=== PATIENT | male | born 1960 | race Caucasian/White ===

== ENCOUNTER 2017-02-20 12:19 | Emergency (ER) | payer SELFPAY ==
[2017-02-20] MEDS ORDERED: RIVA10TA PO (12:26)
[2017-02-20 15:00] VITALS: BP 100/60
== END 2017-02-20 15:15 | disposition home or self-care (01) ==
LOC: ED 15:09
DX: M25.561 Pain in right knee (principal)
CPT/HCPCS: 29505; 99284

== ENCOUNTER 2019-09-30 23:53 | Emergency (ER) | payer SELFPAY ==
[~2019-09-30] VITALS: Ht 182.9 cm; Wt 86.0 kg
[~2019-09-30 23:53] MED LIST: RIVA10TA2 PO
--- NOTE | 2019-10-01 00:06 | NUR ---
BIB [facility] FROM HOME. PT C/O FOOT PAIN ON BOTTOM OF RIGHT GREAT TOE. +ETOH. PT UNABLE TO FOR SUICIDE ASSESSMENT D/T +ETOH. PT CONNECTED TO MONITORING. PROVIDER AT BEDSIDE. AWAITING ORDERS AT THIS TIME.
--- NOTE | 2019-10-01 00:14 | NUR ---
REPORT GIVEN TO CAROLYN KIRBY
[2019-10-01 01:03] VITALS: BP 122/71
--- NOTE | 2019-10-01 01:37 | NUR ---
pt sitting up in bed. pt denies current needs.
--- NOTE | 2019-10-01 02:35 | NUR ---
Pt ambulated in hallway without difficulty, pt requesting to be sent home. Walked patient back to room, ambulated with a steady gate.
== END 2019-10-01 02:51 | disposition home or self-care (01) ==
LOC: ED 10-01 02:43
DX: F10.220 Alcohol dependence with intoxication, uncomplicated (principal); B07.0 Plantar wart; Y90.9 Presence of alcohol in blood, level not specified
CPT/HCPCS: 99283

== ENCOUNTER 2019-12-01 00:35 | Emergency (ER) | payer SELFPAY ==
[~2019-12-01] VITALS: Ht 182.9 cm; Wt 85.0 kg
--- NOTE | 2019-12-01 00:52 | NUR ---
Patient into room, dressed with break RN. Received report and assumed patient care. Patient denies any needs, claims was told he didn't have a heart beat by a neighbor who called the paramedics. Patient in room, changed into clothes, vital signs are stable (see triage flowsheet.) Patient speech pattern is clear, thoughts are disorganized, flight of thoughts from one thought to the next. Patient denies needs and during provider assessment patient declines medical symptoms. Patient states prefers to go home. RN encouraged patient to have EKG done prior to discharge.
[2019-12-01 01:28] LABS: BASOPHILS # (AUTO) 0.06 x10^3/uL (0-0.1); BASOPHILS % (AUTO) 1 % (0-1); EOSINOPHILS # (AUTO) 0.14 x10^3/uL (0-0.4); EOSINOPHILS % (AUTO) 2 % (1-7); LYMPHOCYTES # (AUTO) 3.42 x10^3/uL (1-3.4); LYMPHOCYTES % (AUTO) 44 % (22-44); MD NO; MEAN CORPUSCULAR HEMOGLOBIN 32.9 pg (27.5-34.5); MEAN CORPUSCULAR HGB CONC 34.6 g/dL (33.2-36.2); MEAN CORPUSCULAR VOLUME 95.1 fL (81-97); MEAN PLATELET VOLUME 7.7 fL (7.4-10.4); MONOCYTES # (AUTO) 0.47 x10^3/uL (0.2-0.8); MONOCYTES % (AUTO) 6 % (2-9); NEUTROPHILS # (AUTO) 3.66 x10^3/uL (1.8-6.8); NEUTROPHILS % (AUTO) 47 % (42-75); PLATELET COUNT 162 x10^3/uL (130-400); RED BLOOD COUNT 5.16 x10^6/uL (4.38-5.82); RED CELL DISTRIBUTION WIDTH 14.4 % (9.4-14.8)
[2019-12-01 01:40] LABS: ALBUMIN 3.3 g/dL (3.4-5.0); ANION GAP 10 mmol/L (5-15); CALCIUM 8.1 mg/dL (8.5-10.1); CHLORIDE 108 mmol/L (98-107)
[2019-12-01 01:45] LABS: CREATININE 1.03 mg/dL (0.7-1.3); TROPONIN I < 0.015 ng/mL (0.000-0.045)
[2019-12-01 02:08] VITALS: BP 110/70
--- NOTE | 2019-12-01 02:08 | NUR ---
Rn to room, patient resting comfortably. Has removed blood pressure cuff and pulsatile oxygen sensor despite education on need for monitoring. Reattached, vital signs stable (see vital signs flowsheet) awaiting reassessment by provider.
== END 2019-12-01 02:37 | disposition home or self-care (01) ==
LOC: ED 01:59
DX: F10.120 Alcohol abuse with intoxication, uncomplicated (principal); F17.200 Nicotine dependence, unspecified, uncomplicated; R00.0 Tachycardia, unspecified; Y90.0 Blood alcohol level of less than 20 mg/100 ml
CPT/HCPCS: 36415; 71045; 80048; 80307; 82040; 84484; 85025; 93005; 99285

== ENCOUNTER 2020-07-13 17:15 | Inpatient (IN) | payer OTHER ==
[~2020-07-13] VITALS: Ht 182.9 cm; Wt 79.5 kg
--- NOTE | 2020-07-13 17:32 | NUR ---
PT BIB EMS FOR WEAKNESS, COUGH 12 DAYS, CONFUSION. PT FOUND TO BE HYPOXIC 86% RA AND CONFUSED TO SITUATION PER EMS. RR 40, MOTTLED SKIN. BS 159, GIVEN 250 ML NS, PT ANSWERING QUESTIONS A&OX4, UAT TESTER IN PLACE, MOTTLED SKIN, CLAMMY, RR 40. NOW 94% ON 5 L NC,
--- NOTE | 2020-07-13 17:34 | NUR ---
ERMD UPDATED ON PT APPEREANCE, RESP EFFORT, MOTTELED SKIN. EKG PAGED
--- NOTE | 2020-07-13 17:53 | NUR ---
MD EXAMINED PT, EKG COMPLETE, IVF
[2020-07-13] MEDS ORDERED: SODIUM CHLORIDE 0.9% 1,000ML IVBOLUS ONE (18:00)
[2020-07-13] MEDS ORDERED: SODIUM CHLORIDE FLUSH 10ML SYR IVF ONE (18:00)
[2020-07-13] MEDS ORDERED: CEFTRIAXONE PMX 1GM/50ML 50 ML IV ONE (18:30)
[2020-07-13] MEDS ORDERED: AZITHROMYCIN 500 MG in SODIUM CHLORIDE 0.9% 250 ML IV ONE (18:30)
[2020-07-13 18:32] LABS: ALBUMIN 2.4 g/dL (3.4-5.0); ANION GAP 12 mmol/L (5-15); CALCIUM 7.8 mg/dL (8.5-10.1); CHLORIDE 112 mmol/L (98-107); CREATININE 1.42 mg/dL (0.7-1.3); MEAN CORPUSCULAR HEMOGLOBIN 32.9 pg (27.5-34.5); MEAN CORPUSCULAR HGB CONC 35.1 g/dL (33.2-36.2); MEAN PLATELET VOLUME 11.1 fL (7.4-10.4); PLATELET COUNT 109 x10^3/uL (130-400); RED BLOOD COUNT 5.26 x10^6/uL (4.38-5.82); RED CELL DISTRIBUTION WIDTH 13.2 % (9.4-14.8)
[2020-07-13 18:36] LABS: TROPONIN I < 0.015 ng/mL (0.000-0.045)
[2020-07-13] MEDS ORDERED: CEFTRIAXONE PMX 1GM/50ML 50 ML ONE (18:36)
--- NOTE | 2020-07-13 18:46 | NUR ---
BLOOD CULTURES SENT, PRIOR TO ABX ADMIN
--- NOTE | 2020-07-13 18:56 | NUR ---
REPORT TO RUPINDER
[2020-07-13 18:59] LABS: MD YES
[2020-07-13 19:06] LABS: <PLATELET ESTIMATE> DECREASED; <RBC MORPHOLOGY> NORMAL; BAND#(MANUAL) 0.38 x10^3/uL; BANDS%(MANUAL) 4 % (0-7); EOS#(MANUAL) 0.09 x10^3/uL (0.0-0.4); EOS% (MANUAL) 1 % (1-7); LYMPH#(MANUAL) 1.03 x10^3/uL (1-3.4); LYMPHS% (MANUAL) 11 % (22-44); METAMYELOCYTES# (MANUAL) 0.09 x10^3/uL (0-0); METAMYELOCYTES% (MANUAL) 1 % (0-1); MONOS#(MANUAL) 0.19 x10^3/uL (0.3-2.7); MONOS% (MANUAL) 2 % (2-9); SEG#(MANUAL) 7.61 x10^3/uL (1.8-6.8); SEGS% (MANUAL) 81 % (42-75)
[2020-07-13 19:07] LABS: LARGE PLATELETS 1+
[2020-07-13] MEDS ORDERED: IBUPROFEN 600 MG TABLET PO PRN (20:00)
[2020-07-13] MEDS ORDERED: SODIUM CHLORIDE 0.9% 1,000 ML IV SCH (20:00)
[2020-07-13] MEDS ORDERED: DOCUSATE 100 MG CAPSULE PO PRN (20:00)
[2020-07-13] MEDS ORDERED: LABETALOL 5MG/ML, 20ML IVPush PRN (20:00)
[2020-07-13] MEDS ORDERED: GUAIFENESIN/DM 200-20MG, 10ML UDC PO PRN (20:00)
[2020-07-13] MEDS ORDERED: ACETAMINOPHEN 325 MG TABLET PO PRN (20:00)
[2020-07-13 20:15] LABS: D-DIMER (DIC) 3.61 ug/mlFEU (0.00-0.52); PROTIME 12.6 Seconds (9.6-11.5)
[2020-07-13] MEDS ORDERED: HEPARIN 5,000 UNITS/ML, 1ML ONE (20:26)
[2020-07-13] MEDS ORDERED: DEXAMETHASONE 4 MG/ML, 1ML ONE (20:26)
[2020-07-13 20:34] LABS: C-REACTIVE PROTEIN, QUANT 18.4 mg/dL (0.02-0.49)
[2020-07-13] MEDS: DEXAMETHASONE 4 MG/ML, 1ML IVPush SCH (20:39)
[2020-07-13] MEDS: HEPARIN 5,000 UNITS/ML, 1ML SQ SCH (20:40)
[2020-07-13] MEDS ORDERED: FAMOTIDINE 20 MG/2 ML IVPush SCH (21:00)
--- NOTE | 2020-07-13 23:10 | NUR ---
PT RESTING IN BED, PT URINAL HALF FULL AT BED SIDE WAS DISCARDED, PT DENIED ANY CURRENT WANTS OR NEEDS AT THIS TIME.
[2020-07-14] MEDS ORDERED: OMNIPAQUE 350 MG/ML, 100ML BOTTLE ONE
[2020-07-14 01:55] VITALS: BP 109/74
[2020-07-14 02:04] VITALS: BP 109/73
[2020-07-14 04:00] VITALS: BP 113/77
[2020-07-14] MEDS: HEPARIN 5,000 UNITS/ML, 1ML SQ SCH (04:37)
[2020-07-14 04:54] LABS: BASOPHILS % (AUTO) 0 % (0-1); EOSINOPHILS % (AUTO) 0 % (1-7); LYMPHOCYTES % (AUTO) 6 % (22-44); MEAN CORPUSCULAR HGB CONC 34.3 g/dL (33.2-36.2); MEAN PLATELET VOLUME 9.9 fL (7.4-10.4); MONOCYTES % (AUTO) 6 % (2-9); NEUTROPHILS % (AUTO) 88 % (42-75); PLATELET COUNT 119 x10^3/uL (130-400); RED BLOOD COUNT 4.66 x10^6/uL (4.38-5.82)
[2020-07-14 05:06] LABS: CHLORIDE 114 mmol/L (98-107)
[2020-07-14 05:13] LABS: ANION GAP 5 mmol/L (5-15); CALCIUM 7.8 mg/dL (8.5-10.1); CREATININE 1.34 mg/dL (0.7-1.3)
[2020-07-14 05:50] LABS: MD SCAN
[2020-07-14] MEDS: ENOXAPARIN 40 MG/0.4 ML SQ SCH (07:46)
[2020-07-14] MEDS: ASCORBIC ACID 500 MG TABLET PO SCH ×2 (08:00→17:00)
[2020-07-14] MEDS: ZINC SULFATE 220 MG CAPSULE PO SCH (09:00)
[2020-07-14] MEDS: NICOTINE 14MG/24 HR PATCH.TD24 TD SCH (09:00)
[2020-07-14] MEDS: CHOLECALCIFEROL 5,000u TAB PO SCH (09:00)
[2020-07-14] MEDS: DEXAMETHASONE 4 MG/ML, 1ML IVPush SCH (09:08)
[2020-07-14 10:15] LABS: RAPID INFLUENZA A Negative (Negative); RAPID INFLUENZA B Negative (Negative)
[2020-07-14] MEDS: SODIUM CHLORIDE 0.9% 1,000 ML IV SCH (14:00)
[2020-07-14] MEDS: CEFTRIAXONE PMX 1GM/50ML 50 ML IV SCH (18:24)
[2020-07-14] MEDS: AZITHROMYCIN 500 MG in SODIUM CHLORIDE 0.9% 250 ML IV SCH (18:46)
[2020-07-15] MEDS: SODIUM CHLORIDE 0.9% 1,000 ML IV SCH ×2 (02:23→16:13)
[2020-07-15 05:00] VITALS: BP 128/82
[2020-07-15 09:18] VITALS: BP 130/88
[2020-07-15] MEDS: DEXAMETHASONE 4 MG/ML, 1ML IVPush SCH (09:24)
[2020-07-15] MEDS: ASCORBIC ACID 500 MG TABLET PO SCH ×2 (09:25→16:13)
[2020-07-15] MEDS: NICOTINE 14MG/24 HR PATCH.TD24 TD SCH (09:25)
[2020-07-15] MEDS: ZINC SULFATE 220 MG CAPSULE PO SCH (09:25)
[2020-07-15] MEDS: CHOLECALCIFEROL 5,000u TAB PO SCH (09:25)
[2020-07-15] MEDS: ENOXAPARIN 40 MG/0.4 ML SQ SCH (09:25)
[2020-07-15 11:24] VITALS: BP 122/86
[2020-07-15 13:04] VITALS: BP 137/84
[2020-07-15] MEDS: DIVALPROEX 125 MG CAP.SPRINK PO SCH ×2 (16:13→23:19)
[2020-07-15] MEDS: CEFTRIAXONE PMX 1GM/50ML 50 ML IV SCH (18:07)
[2020-07-15 18:43] VITALS: BP 123/85
[2020-07-15] MEDS: AZITHROMYCIN 500 MG in SODIUM CHLORIDE 0.9% 250 ML IV SCH (18:50)
[2020-07-16 00:33] VITALS: BP 116/76
[2020-07-16] MEDS: SODIUM CHLORIDE 0.9% 1,000 ML IV SCH ×2 (05:28→21:15)
[2020-07-16 07:19] VITALS: BP 123/66
[2020-07-16] MEDS: ENOXAPARIN 40 MG/0.4 ML SQ SCH (07:30)
[2020-07-16] MEDS: NICOTINE 14MG/24 HR PATCH.TD24 TD SCH ×2 (09:00→09:54)
[2020-07-16] MEDS ORDERED: ASCORBIC ACID 250 MG TAB ONE (09:28)
[2020-07-16] MEDS: DEXAMETHASONE 4 MG/ML, 1ML IVPush SCH (09:43)
[2020-07-16] MEDS: MULTIVITAMIN 1 TABLET PO SCH (09:43)
[2020-07-16] MEDS: CHOLECALCIFEROL 5,000u TAB PO SCH (09:43)
[2020-07-16] MEDS: DIVALPROEX 125 MG CAP.SPRINK PO SCH ×3 (09:43→23:23)
[2020-07-16] MEDS: ZINC SULFATE 220 MG CAPSULE PO SCH (09:44)
[2020-07-16] MEDS: THIAMINE 100MG TABLET PO SCH (09:44)
[2020-07-16] MEDS: ASCORBIC ACID 500 MG TABLET PO SCH ×2 (09:54→17:36)
[2020-07-16 12:34] VITALS: BP 133/88
[2020-07-16] MEDS: CEFTRIAXONE PMX 1GM/50ML 50 ML IV SCH (17:36)
[2020-07-16] MEDS: AZITHROMYCIN 500 MG in SODIUM CHLORIDE 0.9% 250 ML IV SCH (18:28)
[2020-07-16 20:48] VITALS: BP 136/81
[2020-07-17 02:05] VITALS: BP 142/80
[2020-07-17 05:23] LABS: BASOPHILS % (AUTO) 0 % (0-1); EOSINOPHILS % (AUTO) 2 % (1-7); LYMPHOCYTES % (AUTO) 19 % (22-44); MEAN CORPUSCULAR HGB CONC 34.5 g/dL (33.2-36.2); MEAN PLATELET VOLUME 9.5 fL (7.4-10.4); MONOCYTES % (AUTO) 5 % (2-9); NEUTROPHILS % (AUTO) 75 % (42-75); PLATELET COUNT 176 x10^3/uL (130-400); RED BLOOD COUNT 4.45 x10^6/uL (4.38-5.82); RED CELL DISTRIBUTION WIDTH 12.6 % (9.4-14.8)
[2020-07-17 05:24] LABS: MD NO
[2020-07-17 05:33] LABS: ANION GAP 4 mmol/L (5-15); CALCIUM 7.7 mg/dL (8.5-10.1); CHLORIDE 117 mmol/L (98-107)
[2020-07-17 05:34] LABS: CREATININE 0.69 mg/dL (0.7-1.3)
[2020-07-17] MEDS: ENOXAPARIN 40 MG/0.4 ML SQ SCH (07:30)
[2020-07-17 07:37] VITALS: BP 142/82
[2020-07-17] MEDS: DIVALPROEX 125 MG CAP.SPRINK PO SCH ×2 (08:13→16:09)
[2020-07-17] MEDS: DEXAMETHASONE 4 MG/ML, 1ML IVPush SCH (08:14)
[2020-07-17] MEDS: THIAMINE 100MG TABLET PO SCH (08:14)
[2020-07-17] MEDS: ASCORBIC ACID 500 MG TABLET PO SCH ×2 (08:14→16:09)
[2020-07-17] MEDS: ZINC SULFATE 220 MG CAPSULE PO SCH (08:14)
[2020-07-17] MEDS: MULTIVITAMIN 1 TABLET PO SCH (08:14)
[2020-07-17] MEDS: NICOTINE 14MG/24 HR PATCH.TD24 TD SCH (08:15)
[2020-07-17] MEDS: CHOLECALCIFEROL 5,000u TAB PO SCH (08:15)
[2020-07-17] MEDS: SODIUM CHLORIDE 0.9% 1,000 ML IV SCH (10:30)
[2020-07-17 12:23] VITALS: BP 102/53
[2020-07-17] MEDS: CEFTRIAXONE PMX 1GM/50ML 50 ML IV SCH (17:59)
[2020-07-17 18:36] VITALS: BP 135/82
[2020-07-17] MEDS: AZITHROMYCIN 500 MG in SODIUM CHLORIDE 0.9% 250 ML IV SCH (18:59)
[2020-07-18] MEDS: DIVALPROEX 125 MG CAP.SPRINK PO SCH ×2 (00:24→09:49)
[2020-07-18] MEDS: SODIUM CHLORIDE 0.9% 1,000 ML IV SCH (00:25)
[2020-07-18 03:59] VITALS: BP 137/87
[2020-07-18 07:42] VITALS: BP 130/81
[2020-07-18] MEDS: NICOTINE 14MG/24 HR PATCH.TD24 TD SCH (09:00)
[2020-07-18] MEDS: ENOXAPARIN 40 MG/0.4 ML SQ SCH (09:47)
[2020-07-18] MEDS: ASCORBIC ACID 500 MG TABLET PO SCH ×2 (09:48→17:55)
[2020-07-18] MEDS: ZINC SULFATE 220 MG CAPSULE PO SCH (09:48)
[2020-07-18] MEDS: MULTIVITAMIN 1 TABLET PO SCH (09:49)
[2020-07-18] MEDS: THIAMINE 100MG TABLET PO SCH (09:49)
[2020-07-18] MEDS: CHOLECALCIFEROL 5,000u TAB PO SCH (09:49)
[2020-07-18] MEDS: DEXAMETHASONE 4 MG/ML, 1ML IVPush SCH (11:59)
[2020-07-18 12:04] VITALS: BP 124/79
[2020-07-18] MEDS ORDERED: FUROSEMIDE 40 MG/4 ML IV ONE (13:30)
[2020-07-18] MEDS: CEFTRIAXONE PMX 1GM/50ML 50 ML IV SCH (17:55)
[2020-07-18] MEDS: AZITHROMYCIN 500 MG in SODIUM CHLORIDE 0.9% 250 ML IV SCH (18:32)
[2020-07-18 19:14] VITALS: BP 121/76
[2020-07-18] MEDS: ENOXAPARIN 80 MG/0.8 ML SQ SCH (19:53)
[2020-07-19 00:10] VITALS: BP 122/87
[2020-07-19 05:22] LABS: BASOPHILS % (AUTO) 1 % (0-1); EOSINOPHILS % (AUTO) 1 % (1-7); LYMPHOCYTES % (AUTO) 23 % (22-44); MEAN CORPUSCULAR HEMOGLOBIN 32.4 pg (27.5-34.5); MEAN CORPUSCULAR HGB CONC 33.9 g/dL (33.2-36.2); MEAN PLATELET VOLUME 9.5 fL (7.4-10.4); MONOCYTES % (AUTO) 6 % (2-9); NEUTROPHILS % (AUTO) 69 % (42-75); PLATELET COUNT 206 x10^3/uL (130-400); RED BLOOD COUNT 4.51 x10^6/uL (4.38-5.82); RED CELL DISTRIBUTION WIDTH 12.8 % (9.4-14.8)
[2020-07-19 05:30] LABS: MD NO
[2020-07-19 05:38] LABS: ANION GAP 6 mmol/L (5-15); CALCIUM 9.3 mg/dL (8.5-10.1); CHLORIDE 109 mmol/L (98-107); CREATININE 0.79 mg/dL (0.7-1.3)
[2020-07-19] MEDS ORDERED: FUROSEMIDE 20 MG/2 ML IV ONE (07:30)
[2020-07-19 08:26] VITALS: BP 110/70
[2020-07-19] MEDS: DEXAMETHASONE 4 MG/ML, 1ML IVPush SCH (08:28)
[2020-07-19] MEDS: THIAMINE 100MG TABLET PO SCH (08:28)
[2020-07-19] MEDS: MULTIVITAMIN 1 TABLET PO SCH (08:28)
[2020-07-19] MEDS: ZINC SULFATE 220 MG CAPSULE PO SCH (08:28)
[2020-07-19] MEDS: CHOLECALCIFEROL 5,000u TAB PO SCH (08:28)
[2020-07-19] MEDS: NICOTINE 14MG/24 HR PATCH.TD24 TD SCH (08:29)
[2020-07-19] MEDS: ASCORBIC ACID 500 MG TABLET PO SCH ×2 (08:29→17:55)
[2020-07-19] MEDS: ENOXAPARIN 80 MG/0.8 ML SQ SCH ×2 (08:29→20:53)
[2020-07-19 14:25] VITALS: BP 109/68
--- NOTE | 2020-07-19 16:01 | NUR ---
educated pt on green activity sheet: 1) up to chair for meals 2) amb with nursing 3 times a day with [facility] Addendum: 07/19/20 at 1604 by Faviola Sullivan PT Amended: Links added.
[2020-07-19] MEDS: CEFTRIAXONE PMX 1GM/50ML 50 ML IV SCH (17:55)
[2020-07-19] MEDS: AZITHROMYCIN 500 MG in SODIUM CHLORIDE 0.9% 250 ML IV SCH (18:28)
[2020-07-19 18:29] VITALS: BP 112/75
[2020-07-20 00:31] VITALS: BP 121/82
[2020-07-20 06:42] LABS: C-REACTIVE PROTEIN, QUANT 1.5 mg/dL (0.02-0.49)
[2020-07-20 08:05] VITALS: BP 112/77
[2020-07-20] MEDS: ENOXAPARIN 80 MG/0.8 ML SQ SCH ×2 (08:24→21:58)
[2020-07-20] MEDS: THIAMINE 100MG TABLET PO SCH (08:24)
[2020-07-20] MEDS: ASCORBIC ACID 500 MG TABLET PO SCH ×2 (08:24→17:25)
[2020-07-20] MEDS: CHOLECALCIFEROL 5,000u TAB PO SCH (08:24)
[2020-07-20] MEDS: MULTIVITAMIN 1 TABLET PO SCH (08:24)
[2020-07-20] MEDS: DEXAMETHASONE 4 MG/ML, 1ML IVPush SCH (08:24)
[2020-07-20] MEDS: ZINC SULFATE 220 MG CAPSULE PO SCH (08:24)
[2020-07-20] MEDS: NICOTINE 14MG/24 HR PATCH.TD24 TD SCH (09:00)
[2020-07-20 15:02] VITALS: BP 110/73
[2020-07-20] MEDS: CEFTRIAXONE PMX 1GM/50ML 50 ML IV SCH (17:25)
[2020-07-20] MEDS: AZITHROMYCIN 500 MG in SODIUM CHLORIDE 0.9% 250 ML IV SCH (17:55)
[2020-07-20 18:18] VITALS: BP 107/67
[2020-07-21 02:00] VITALS: BP 110/70
[2020-07-21 05:24] LABS: BASOPHILS % (AUTO) 1 % (0-1); EOSINOPHILS % (AUTO) 1 % (1-7); LYMPHOCYTES % (AUTO) 26 % (22-44); MEAN CORPUSCULAR HEMOGLOBIN 33.4 pg (27.5-34.5); MEAN PLATELET VOLUME 9.3 fL (7.4-10.4); MONOCYTES % (AUTO) 7 % (2-9); NEUTROPHILS % (AUTO) 66 % (42-75); PLATELET COUNT 192 x10^3/uL (130-400); RED BLOOD COUNT 4.52 x10^6/uL (4.38-5.82); RED CELL DISTRIBUTION WIDTH 12.8 % (9.4-14.8)
[2020-07-21 05:25] LABS: MD NO
[2020-07-21 05:36] LABS: ANION GAP 3 mmol/L (5-15); CALCIUM 8.8 mg/dL (8.5-10.1); CHLORIDE 108 mmol/L (98-107); CREATININE 0.72 mg/dL (0.7-1.3)
[2020-07-21 07:10] VITALS: BP 109/77
[2020-07-21] MEDS: NICOTINE 14MG/24 HR PATCH.TD24 TD SCH (07:27)
[2020-07-21] MEDS: CHOLECALCIFEROL 5,000u TAB PO SCH (09:00)
[2020-07-21] MEDS ORDERED: CHOLECALCIFEROL 1,000 UNIT TABLET ONE (10:04)
[2020-07-21] MEDS: THIAMINE 100MG TABLET PO SCH (10:13)
[2020-07-21] MEDS: MULTIVITAMIN 1 TABLET PO SCH (10:13)
[2020-07-21] MEDS: ZINC SULFATE 220 MG CAPSULE PO SCH (10:13)
[2020-07-21] MEDS: ASCORBIC ACID 500 MG TABLET PO SCH ×2 (10:13→17:13)
[2020-07-21] MEDS: DEXAMETHASONE 4 MG/ML, 1ML IVPush SCH (10:13)
[2020-07-21] MEDS: ENOXAPARIN 80 MG/0.8 ML SQ SCH ×2 (10:14→20:56)
[2020-07-21 13:55] VITALS: BP 121/74
[2020-07-21] MEDS: CEFTRIAXONE PMX 1GM/50ML 50 ML IV SCH (17:42)
[2020-07-21] MEDS: AZITHROMYCIN 500 MG in SODIUM CHLORIDE 0.9% 250 ML IV SCH (18:19)
[2020-07-21 18:52] VITALS: BP 104/67
[2020-07-21] MEDS: GUAIFENESIN ER 600 MG TABLET PO SCH (20:56)
[2020-07-22 00:05] VITALS: BP 112/75
[2020-07-22 06:33] VITALS: BP 114/77
[2020-07-22] MEDS: NICOTINE 14MG/24 HR PATCH.TD24 TD SCH (09:00)
[2020-07-22] MEDS: ENOXAPARIN 80 MG/0.8 ML SQ SCH ×2 (09:00→21:12)
[2020-07-22] MEDS: DEXAMETHASONE 4 MG/ML, 1ML IVPush SCH (09:41)
[2020-07-22] MEDS: ASCORBIC ACID 500 MG TABLET PO SCH ×2 (09:42→17:03)
[2020-07-22] MEDS: MULTIVITAMIN 1 TABLET PO SCH (09:42)
[2020-07-22] MEDS: CHOLECALCIFEROL 5,000u TAB PO SCH (09:42)
[2020-07-22] MEDS: GUAIFENESIN ER 600 MG TABLET PO SCH ×2 (09:42→21:12)
[2020-07-22] MEDS: ZINC SULFATE 220 MG CAPSULE PO SCH (09:42)
[2020-07-22] MEDS: THIAMINE 100MG TABLET PO SCH (09:42)
[2020-07-22 12:14] VITALS: BP 102/70
[2020-07-22] MEDS: CEFTRIAXONE PMX 1GM/50ML 50 ML IV SCH (17:04)
[2020-07-22] MEDS: AZITHROMYCIN 500 MG in SODIUM CHLORIDE 0.9% 250 ML IV SCH (17:46)
[2020-07-22 18:21] VITALS: BP 100/67
[2020-07-23 02:25] VITALS: BP 117/79
[2020-07-23 08:15] VITALS: BP 114/80
[2020-07-23] MEDS: GUAIFENESIN ER 600 MG TABLET PO SCH ×2 (08:36→20:42)
[2020-07-23] MEDS: ZINC SULFATE 220 MG CAPSULE PO SCH (08:36)
[2020-07-23] MEDS: MULTIVITAMIN 1 TABLET PO SCH (08:36)
[2020-07-23] MEDS: THIAMINE 100MG TABLET PO SCH (08:36)
[2020-07-23] MEDS: CHOLECALCIFEROL 5,000u TAB PO SCH (08:36)
[2020-07-23] MEDS: DEXAMETHASONE 4 MG/ML, 1ML IVPush SCH (08:36)
[2020-07-23] MEDS: ASCORBIC ACID 500 MG TABLET PO SCH ×2 (08:36→17:10)
[2020-07-23] MEDS: ENOXAPARIN 80 MG/0.8 ML SQ SCH ×2 (08:36→20:42)
[2020-07-23] MEDS: NICOTINE 14MG/24 HR PATCH.TD24 TD SCH (08:37)
[2020-07-23 12:46] VITALS: BP 104/65
[2020-07-23] MEDS: CEFTRIAXONE PMX 1GM/50ML 50 ML IV SCH (17:10)
[2020-07-23] MEDS: AZITHROMYCIN 500 MG in SODIUM CHLORIDE 0.9% 250 ML IV SCH (18:32)
[2020-07-23 21:10] VITALS: BP 111/71
[2020-07-24 01:52] VITALS: BP 117/78
[2020-07-24 07:46] VITALS: BP 109/75
[2020-07-24] MEDS: CHOLECALCIFEROL 5,000u TAB PO SCH (09:00)
[2020-07-24] MEDS: NICOTINE 14MG/24 HR PATCH.TD24 TD SCH (09:00)
[2020-07-24] MEDS: ENOXAPARIN 80 MG/0.8 ML SQ SCH (09:00)
[2020-07-24] MEDS: THIAMINE 100MG TABLET PO SCH (09:34)
[2020-07-24] MEDS: GUAIFENESIN ER 600 MG TABLET PO SCH (09:34)
[2020-07-24] MEDS: ZINC SULFATE 220 MG CAPSULE PO SCH (09:34)
[2020-07-24] MEDS: ASCORBIC ACID 500 MG TABLET PO SCH ×2 (09:35→18:15)
[2020-07-24] MEDS: DEXAMETHASONE 4 MG/ML, 1ML IVPush SCH (09:35)
[2020-07-24] MEDS: MULTIVITAMIN 1 TABLET PO SCH (09:35)
[2020-07-24 12:24] VITALS: BP 105/63
== END 2020-07-24 18:45 | disposition home or self-care (01) | DRG 177 ==
LOC: ED 19:26 → EDIP 19:40 → CCU 23:50 → 3N 07-15 11:16
PROVIDERS: ADMIT Family Medicine; ATTEND Internal Medicine
DX: U07.1 COVID-19 (principal); E43 Unspecified severe protein-calorie malnutrition; J12.89 Other viral pneumonia; J96.01 Acute respiratory failure with hypoxia; N17.0 Acute kidney failure with tubular necrosis; J44.0 Chronic obstructive pulmonary disease with (acute) lower respiratory infection; F10.20 Alcohol dependence, uncomplicated; J44.9 Chronic obstructive pulmonary disease, unspecified; F17.200 Nicotine dependence, unspecified, uncomplicated; Z79.899 Other long term (current) drug therapy; Z79.01 Long term (current) use of anticoagulants; Z71.6 Tobacco abuse counseling; Z68.23 Body mass index [BMI] 23.0-23.9, adult; Z86.711 Personal history of pulmonary embolism
CPT/HCPCS: 36415; 36600; 71045; 71275; 80048; 82040; 82728; 82803; 83605; 83615; 83880; 84145; 84484; 85025; 85049; 85379; 85384; 85610; 85730; 86140; 87040; 87081; 87400; 87635; 93005; 93306; 96361; 96365; 99291; G0378; J0456; J0696; J1100; J1644; J1650; J1940; Q9967; J7030; J7050

== ENCOUNTER 2021-04-01 16:36 | Emergency (ER) | payer MEDICAID ==
[~2021-04-01] VITALS: Ht 185.4 cm; Wt 95.0 kg
[2021-04-01] MEDS ORDERED: SODIUM CHLORIDE FLUSH 10ML SYR IVF ONE (17:30)
[2021-04-01] MEDS ORDERED: SODIUM CHLORIDE 0.9% 1,000ML IVBOLUS ONE (17:30)
[2021-04-01] MEDS ORDERED: ONDANSETRON 2MG/ML, 2ML IVPush ONE (17:30)
--- NOTE | 2021-04-01 17:32 | NUR ---
bp rechecked on both arms, 100s/60s. iv est fluids infusing. pt declned nausea meds at moment. abd semi firm gilbert in upper quadrants. no n/v. diarrhea 4x this am. pt sts he felt like he was going to pass out. A&ox4 gcs 15. lungs ctab. pt treated himself for scabies last week. still itchy. a lot of small scabs noted. placed on contact precs. given commode, aware of need for stool sample. monisha was in room. call monroy. labs sent. as
[2021-04-01 17:40] LABS: BASOPHILS % (AUTO) 0 % (0-1); EOSINOPHILS % (AUTO) 1 % (1-7); LYMPHOCYTES % (AUTO) 9 % (22-44); MEAN CORPUSCULAR HEMOGLOBIN 31.3 pg (27.5-34.5); MEAN CORPUSCULAR HGB CONC 34.1 g/dL (33.2-36.2); MEAN PLATELET VOLUME 9.3 fL (7.4-10.4); MONOCYTES % (AUTO) 6 % (2-9); NEUTROPHILS % (AUTO) 84 % (42-75); PLATELET COUNT 152 x10^3/uL (130-400); RED BLOOD COUNT 4.64 x10^6/uL (4.38-5.82); RED CELL DISTRIBUTION WIDTH 13.3 % (9.4-14.8)
[2021-04-01 18:41] LABS: ALANINE AMINOTRANSFERASE 28 U/L (12-78); ALBUMIN 3.6 g/dL (3.4-5.0); ANION GAP 6 mmol/L (5-15); CALCIUM 8.8 mg/dL (8.5-10.1); CHLORIDE 110 mmol/L (98-107); CREATININE 1.52 mg/dL (0.7-1.3)
[2021-04-01 18:43] LABS: ALKALINE PHOSPHATASE 72 U/L (45-117); TOTAL PROTEIN 7.5 g/dL (6.4-8.2)
--- NOTE | 2021-04-01 18:58 | NUR ---
Silvina maxwell in ED - 04/01/21 at [address], sts ct done awaitint results. as
--- NOTE | 2021-04-01 19:33 | NUR ---
pt at ct. stool sample walked to lab. pt was given urinal as well as hat for samples but did not provide urine sample. as
[2021-04-01] MEDS ORDERED: OMNIPAQUE 350 MG/ML, 100ML BOTTLE ONE (19:38)
--- NOTE | 2021-04-01 20:13 | NUR ---
asked pt again for ua. as
[2021-04-01 20:35] VITALS: BP 112/71
--- NOTE | 2021-04-01 20:35 | NUR ---
ua walked to lab. as
--- NOTE | 2021-04-01 21:00 | NUR ---
urine in lab, still being processed. as
--- NOTE | 2021-04-01 21:07 | NUR ---
report to baldomero atkinson. as
[2021-04-01 21:08] LABS: CLOSTRIDIUM DIFFICILE ANTIGEN NEGATIVE; CLOSTRIDIUM DIFFICILE TOXIN NEGATIVE (Negative)
[2021-04-01 21:28] LABS: MICROSCOPIC NOT IND
--- NOTE | 2021-04-01 22:12 | NUR ---
Patient given discharge instructions and they have confirmed that they understand the instructions. Patient ambulatory with steady gait. NAD, all questions answered appropriately, denies additional needs at this time. No personal belongings left in room after discharge. Patient provided with taxi and long sleeve jacket.
== END 2021-04-01 22:14 | disposition home or self-care (01) ==
LOC: ED 17:06
DX: R19.7 Diarrhea, unspecified (principal); R10.84 Generalized abdominal pain; R53.1 Weakness; F17.200 Nicotine dependence, unspecified, uncomplicated; R94.31 Abnormal electrocardiogram [ECG] [EKG]
CPT/HCPCS: 36415; 74177; 80053; 80320; 81003; 83690; 85025; 87324; 89055; 93005; 99285; Q9967; G0480